=== PATIENT | male | born 1940 | race Caucasian/White ===

== ENCOUNTER 2017-12-16 11:16 | Inpatient (IN) | payer BC, MEDICARE ==
[~2017-12-16] VITALS: Ht 165.1 cm; Wt 73.2 kg
[2017-12-16] MEDS ORDERED: RAMI5CAP57 PO (11:59)
[2017-12-16] MEDS ORDERED: MELA10TA3 PO (11:59)
[2017-12-16] MEDS ORDERED: GABAPENTIN 300 MG CAPSULE PO ONE (12:30)
[2017-12-16] MEDS ORDERED: ACETAMINOPHEN 500 MG TABLET PO ONE (12:30)
[2017-12-16] MEDS: LACTATED RINGERS 1,000 ML IV SCH ×2 (12:47→17:46)
[2017-12-16 12:51] VITALS: BP 152/80
[2017-12-16 13:13] LABS: ALBUMIN 3.9 g/dL (3.4-5.0); ANION GAP 9 mmol/L (5-15); CHLORIDE 112 mmol/L (98-107)
[2017-12-16 13:16] LABS: ALANINE AMINOTRANSFERASE 28 U/L (12-78); ALKALINE PHOSPHATASE 54 U/L (45-117); BILIRUBIN,TOTAL 0.8 mg/dL (0.2-1.0); CREATININE 1.14 mg/dL (0.7-1.3)
[2017-12-16] MEDS ORDERED: OXYcodone 5 MG/5 ML ORAL.SOL UDC PO PRN (13:30)
[2017-12-16] MEDS ORDERED: HYDROmorphone 1 MG/ML, 1ML IV PRN (13:30)
[2017-12-16] MEDS ORDERED: hydrALAzine 20 MG/ML, 1ML IV PRN ×2 (13:30→18:30)
[2017-12-16] MEDS ORDERED: DIPHENHYDRAMINE 50 MG/ML, 1ML IVPush PRN (13:30)
[2017-12-16] MEDS ORDERED: HALOPERIDOL 5 MG/ML IV PRN (13:30)
[2017-12-16] MEDS ORDERED: PROCHLORPERAZINE 5 MG/ML, 2ML IV PRN (13:30)
[2017-12-16] MEDS ORDERED: FENTANYL PF 250 MCG/5ML ONE (13:38)
[2017-12-16] MEDS ORDERED: BUPIVACAINE/PF-EPI 0.5% 1:200K ONE (14:55)
[2017-12-16] MEDS ORDERED: SUCCINYLCHOLINE 20 MG/ML, 10ML ONE (16:07)
[2017-12-16] MEDS ORDERED: ROCURONIUM 10MG/ML,5ML ONE (16:07)
[2017-12-16] MEDS ORDERED: GLYCOPYRROLATE 0.2MG/1ML, 5ML ONE (16:07)
[2017-12-16] MEDS ORDERED: PROPOFOL 10 MG/ML, 20ML ONE (16:07)
[2017-12-16] MEDS ORDERED: NEOSTIGMINE 1 MG/ML, 10ML ONE (16:07)
[2017-12-16] MEDS ORDERED: CEFAZOLIN 1,000 MG ONE (16:07)
[2017-12-16] MEDS ORDERED: DEXAMETHASONE 4 MG/ML, 1ML ONE (16:07)
[2017-12-16] MEDS ORDERED: ONDANSETRON 2MG/ML, 2ML ONE (16:07)
[2017-12-16] MEDS ORDERED: OXYcodone 5 MG/5 ML ORAL.SOL UDC ONE (16:16)
[2017-12-16] MEDS ORDERED: FENTANYL PF 100 MCG/2ML ONE (16:16)
[2017-12-16] MEDS ORDERED: MEPERIDINE/PF 50 MG/ML ONE (16:16)
[2017-12-16] MEDS: FENTANYL PF 100 MCG/2ML IV PRN ×2 (16:21→16:26)
[2017-12-16] MEDS: LABETALOL 5MG/ML, 20ML IV PRN ×2 (16:25→16:35)
[2017-12-16] MEDS: MEPERIDINE/PF 25MG/0.5ML IVPush PRN ×2 (16:26→16:43)
[2017-12-16] MEDS ORDERED: hydrALAzine 20 MG/ML, 1ML ONE (16:33)
[2017-12-16] MEDS ORDERED: LABETALOL 5MG/ML, 20ML ONE (16:33)
[2017-12-16 17:45] VITALS: BP 142/62
[2017-12-16] MEDS ORDERED: HYDROcodone/APAP 5/325 TABLET PO PRN (18:30)
[2017-12-16] MEDS ORDERED: ONDANSETRON 2MG/ML, 2ML IV PRN (18:30)
[2017-12-16] MEDS ORDERED: ACETAMINOPHEN 325 MG TABLET PO PRN (18:30)
[2017-12-16] MEDS ORDERED: ACETAMINOPHEN 650 MG SUPP PR PRN (18:30)
[2017-12-16] MEDS ORDERED: DIPHENHYDRAMINE 50 MG/ML, 1ML IV PRN (18:30)
[2017-12-16] MEDS ORDERED: morphine SULFATE 10 MG/ML, 1ML IV PRN (18:30)
[2017-12-16] MEDS ORDERED: DIPHENHYDRAMINE 25 MG CAPSULE PO PRN (18:30)
[2017-12-16] MEDS ORDERED: KETOROLAC 30 MG/1 ML IV PRN (18:30)
[2017-12-16] MEDS: ENOXAPARIN 40 MG/0.4 ML SQ SCH (18:35)
[2017-12-16] MEDS: SODIUM CHLORIDE FLUSH 10ML SYR IVF SCH (19:12)
[2017-12-16 20:32] VITALS: BP 137/62
[2017-12-16] MEDS: POTASSIUM CHLORIDE 20 MEQ in D5%-0.45% NACL 1,000 ML IV SCH (21:28)
[2017-12-16 23:55] VITALS: BP 133/64
[2017-12-17 00:12] VITALS: BP 127/62
[2017-12-17 03:59] VITALS: BP 135/66
[2017-12-17 07:35] VITALS: BP 134/64
[2017-12-17] MEDS: SODIUM CHLORIDE FLUSH 10ML SYR IVF SCH (07:54)
[2017-12-17] MEDS: POTASSIUM CHLORIDE 20 MEQ in D5%-0.45% NACL 1,000 ML IV SCH (07:54)
[2017-12-17 13:24] VITALS: BP 135/61
[2017-12-17] MEDS ORDERED: HYDR-3240 PO (17:55)
[2017-12-17] MEDS ORDERED: DOCU-131 PO (17:56)
[2017-12-17] MEDS ORDERED: ONDA4TAB10 PO (17:56)
[2017-12-17] MEDS: ENOXAPARIN 40 MG/0.4 ML SQ SCH (18:03)
[2017-12-17 19:47] VITALS: BP 153/81
== END 2017-12-17 20:10 | disposition home or self-care (01) | DRG 352 ==
LOC: OUT 11:16 → 4NOR 17:29 → OUT 17:39 → 4NOR 17:39
PROVIDERS: ADMIT Surgery; ATTEND Surgery
PROC: 0YUA4JZ Supplement Bilateral Inguinal Region with Synthetic Substitute, Percutaneous Endoscopic Approach (ICD-10-PCS; principal; 2017-12-16 14:00)
DX: K40.20 Bilateral inguinal hernia, without obstruction or gangrene, not specified as recurrent (principal); I10 Essential (primary) hypertension; Z85.828 Personal history of other malignant neoplasm of skin; F17.200 Nicotine dependence, unspecified, uncomplicated
CPT/HCPCS: 36415; 80053; 93005; G0378; J0690; J1100; J1650; J2175; J2405; J2704; J2710; J3010; J3480; J3490; C1727; C1781; J0330; J0360; J7120